=== PATIENT | male | born 1980 | race Two or more races ===

== ENCOUNTER 2019-04-20 11:52 | Emergency (ER) | payer MEDICAID ==
[~2019-04-20] VITALS: Ht 172.7 cm; Wt 95.5 kg
[2019-04-20 12:45] VITALS: BP 128/72
== END 2019-04-20 12:51 | disposition home or self-care (01) ==
LOC: ER 11:52
DX: R42 Dizziness and giddiness (principal)
CPT/HCPCS: 93005; 99283